=== PATIENT | female | born 1980 | race Caucasian/White ===

== ENCOUNTER 2023-11-09 06:30 | Observation (INO) ==
[2023-11-09] MEDS: NOZIN NASAL SANITIZER TP ONE (06:44)
[2023-11-09] MEDS: LR 1,000 ML IV 1,000 ML IV SCH (06:45)
[2023-11-09] MEDS ORDERED: BARHEMSYS INJ IVP PRN (07:06)
[2023-11-09] MEDS ORDERED: REGLAN INJ 10 MG VIAL IVP PRN (07:06)
[2023-11-09] MEDS ORDERED: BENADRYL INJ 50 MG VIAL IVP PRN (07:06)
[2023-11-09] MEDS: NS 100 ML IV 100 ML ONE (07:09)
[2023-11-09] MEDS: ANCEF VIAL 1 GRAM IVP ONE (07:09)
[2023-11-09] MEDS: MORPHINE SULFATE INJ 10 MG ONE (07:20)
[2023-11-09] MEDS: ZEMURON 100 MG VIAL ONE (07:20)
[2023-11-09] MEDS: ZOFRAN INJ 4 MG VIAL ONE ×2 (07:20→09:13)
[2023-11-09] MEDS: BETADINE SOLN ONE (07:20)
[2023-11-09] MEDS: VERSED ONE (07:20)
[2023-11-09] MEDS: MAGNESIUM SULFATE 50% INJ VIAL ONE (07:20)
[2023-11-09] MEDS: DIPRIVAN VIAL 20 ML ONE (07:20)
[2023-11-09] MEDS: PEPCID 20 MG VIAL ONE (07:20)
[2023-11-09] MEDS ORDERED: SUPRANE ONE (07:20)
[2023-11-09] MEDS: DECADRON INJ ONE (07:20)
[2023-11-09 07:24] VITALS: BMI 33.3
[2023-11-09] MEDS: VASOSTRICT INJ 20 UNITS VIAL ONE (07:39)
[2023-11-09] MEDS: KETAMINE 50 MG/5 ML-NACL SYRNG ONE (07:47)
[2023-11-09] MEDS: BRIDION ONE (08:41)
[2023-11-09] MEDS: LR 1,000 ML IV 1,000 ML IV ONE (08:59)
[2023-11-09] MEDS: DILAUDID INJ ONE (09:13)
[2023-11-09] MEDS: DILAUDID INJ IVP PRN (09:15)
[2023-11-09] MEDS: ZOFRAN INJ 4 MG VIAL IVP PRN (09:20)
[2023-11-09] MEDS ORDERED: NARCAN INJ IVP PRN (09:41)
[2023-11-09] MEDS ORDERED: ZOFRAN INJ 4 MG VIAL IVP PRN (09:41)
[2023-11-09] MEDS: TORADOL 30 MG VIAL IVP SCH (10:12)
[2023-11-09] MEDS: MORPHINE SULFATE PCA 30 MG IVP PRN (10:31)
[2023-11-09] MEDS ORDERED: NS IRRIGATION* 500 ML IR ONE (15:22)
[2023-11-09] MEDS ORDERED: MOTRIN TAB 800 MG PO PRN (16:37)
[2023-11-09 20:19] VITALS: O2SAT 96
[2023-11-09] MEDS: PERCOCET TAB 5/325 MG PO PRN (20:58)
[2023-11-10 05:26] LABS: HEMATOCRIT 33.3 % (36.0-47.0); HEMOGLOBIN 11.4 g/dL (12.0-16.0)
[2023-11-10 05:39] LABS: BLOOD UREA NITROGEN 11 mg/dL (7-18); CALCIUM 8.9 mg/dL (8.5-10.1); CARBON DIOXIDE 28.7 mmol/L (21-32); CHLORIDE 110 mmol/L (98-107); COR NA(FOR HYPERGLY) 145 mmol/L (136-145); CREATININE 0.76 mg/dL (0.55-1.02); GLUCOSE 115 mg/dL (65-99); POTASSIUM 3.8 mmol/L (3.5-5.1); SODIUM 145 mmol/L (136-145); eGFR NON BLACK RACES > 60 (>60)
[2023-11-10 07:49] VITALS: BP 114/65; PULSE 54; TEMP 97.2
[2023-11-10] MEDS ORDERED: TORADOL 30 MG VIAL IM PRN (09:05)
[2023-11-10] MEDS ORDERED: TORADOL 30 MG VIAL IVP PRN (09:05)
[2023-11-10 09:07] VITALS: RESP 20
== END 2023-11-10 09:08 | disposition home or self-care (01) ==
LOC: SURG1 06:30 → MED/SURG 06:30
PROVIDERS: ADMIT Specialist; ATTEND Specialist
DX: R10.2 Pelvic and perineal pain; N92.0 Excessive and frequent menstruation with regular cycle; N87.0 Mild cervical dysplasia; N94.4 Primary dysmenorrhea; I10 Essential (primary) hypertension